=== PATIENT | female | born 1995 | race American Indian/Alaskan Native ===

== ENCOUNTER 2017-06-18 17:02 | Outpatient (CLI) | payer OTHER | END 2017-06-19 14:21 | disposition home or self-care (01) | LOC: OBS/DEL 17:02 | DX: O26.893 Other specified pregnancy related conditions, third trimester (principal); Z04.2 Encounter for examination and observation following work accident; S30.1XXA Contusion of abdominal wall, initial encounter; X58.XXXA Exposure to other specified factors, initial encounter; Y93.89 Activity, other specified; Y92.89 Other specified places as the place of occurrence of the external cause; Y99.9 Unspecified external cause status ==